=== PATIENT | female | born 1985 | race Two or more races ===

== ENCOUNTER 2016-10-10 16:58 | Emergency (ER) | payer OTHER ==
[2016-10-10 20:48] LABS: BASO % 0.3 % (0.0-1.0); EOS # 0.2 K/mm3 (0.0-0.50); EOS % 1.8 % (0.0-3.0); LARGE UNSTAINED CELL # 0.2 K/mm3 (0.0-0.4); LYMPH # 2.5 K/mm3 (1.5-6.5); LYMPH % 29.4 % (24.0-44.0); MEAN CORPUSCULAR HEMOGLOBIN 31.3 pg (27.0-33.0); MEAN CORPUSCULAR HGB CONC 35.6 g/dl (32.0-36.5); MEAN CORPUSCULAR VOLUME 87.9 fl (80.0-96.0); MONO # 0.4 K/mm3 (0.0-0.8); MONO % 4.8 % (0.0-5.0); NEUTROPHILS # 5.3 K/mm3 (1.8-7.7); NEUTROPHILS % 61.7 % (36.0-66.0); PLATELET COUNT, AUTOMATED 321 k/mm3 (150-450); WHITE BLOOD COUNT 8.6 K/mm3 (4.0-10.0)
--- NOTE | 2016-10-10 20:48 | REP ---
Clinical: Early with vaginal bleeding. Technique: Transabdominal obstetrical ultrasound with color Doppler evaluation of the maternal ovaries and gestation. Findings: Anteverted uterus measures 10.4 x 5.5 x 7.6 cm. A single live early intrauterine is identified. Gestational sac with yolk sac and pole noted. CRL of 6 mm corresponds to 6 weeks 3 days gestational age with estimated date of delivery 06/02/2017. heart rate equals 100 beats per minute. Two subchorionic hemorrhages are identified measuring 2.9 x 1.9 x 2.9 cm along the lower uterine segment and 1.7 x 1.5 x 1.0 cm along the left side of the gestational sac. Maternal ovaries are normal in appearance and vascularity. Left ovary measures 3.0 x 3.6 x 2.0 cm; RI equal 0.59. Right ovary measures 3.4 x 2.5 x 2.7 cm; RI equal 0.62. No significant pelvic fluid. Impression: 1. Single live early intrauterine at 6 weeks 3 days gestational age. Complete anatomical assessment should be performed at 19-20 weeks. 2. Subchorionic hemorrhages as noted above. Signed by Major Mcdonough MD 10/10/2016 08:40 P
--- NOTE | 2016-10-10 22:36 | EDDOCDS ---
Physician Documentation [facility] Name: Radha Kim Age: 30 yrs Sex: Female : 1985 Arrival Date: 10/10/2016 Time: 16:58 Bed I4 / M4 Private MD: Unknown, Family Disposition: 10/10/16 22:18 Discharged to Home/Self Care. Impression: Threatened . - Condition is Stable. - Discharge Instructions: Threatened Miscarriage. - Medication Reconciliation, Local Pharmacy Hours form. - Follow up: Private Physician; When: 2 - 3 days; Reason: Recheck today's complaints, Continuance of care. - Problem is new. - Symptoms have improved. - Notes: PLEASE FOLLOW UP WITH DR MCKEON OR AN OB DOCTOR OF YOUR CHOICE , RETURN TO THE ER IF THE SYMPTOMS WORSEN OR BECOME CONCERNING, IF YOU ARE UNABLE TO FOLLOW UP WITH DR MCKEON, PLEASE RETURN TO THE ER IN 48 HOURS FOR A REPEAT HORMONE Historical: - Allergies: no known allergies; - Home Meds: 1. none - PSHx: none; - Social history: Smoking status: Patient/guardian denies using No barriers to communication noted, The patient speaks fluent Somali. - Family history: Not pertinent. - : The pt / caregiver states he / she is not on anticoagulants. Home medication list is obtained from the patient. - Exposure Risk Screening:: None identified. 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 11 in. (149.86 cm) (R); 22:30 BP 97 / 55 LA Sitting (auto/reg); Pulse 62 MON; Resp 18 S; Temp 98.5(TE); Pulse Ox 98% cln on R/A; Pain 0/10; 17:00 Body Mass Index 20.20 (45.36 kg, 149.86 cm) dd6 MDM: 18:51 Financial registration complete. gjb 19:02 IV Saline Lock ordered. ck7 19:02 NS 0.9% 1000 ml IV at bolus once ordered. ck7 19:02 Set up pelvic ordered. ck7 19:03 Type & Screen Ordered. EDMS 19:03 CBC with Diff Ordered. EDMS 19:03 UA Ordered. EDMS 19:03 Hcg, Serum Quantitative Ordered. EDMS 19:03 GC & Chlamydia Amplification Ordered. EDMS 19:03 Urine Culture Ordered. EDMS 19:03 Wet Prep Ordered. EDMS 19:03 US 1st trimester Ordered. EDMS 20:11 [facility] Payment Agreement was scanned into [employer] and attached to record. gjb 20:42 DUPLEX SCAN LIMITED (DOPPLER) Ordered. EDMS 21:15 UA Reviewed. ck7 21:15 CBC with Diff Reviewed. ck7 21:15 Type & Screen Reviewed. ck7 21:15 Hcg, Serum Quantitative Reviewed. ck7 21:15 US 1st trimester Reviewed. ck7 21:44 Wet Prep Reviewed. ck7 Administered Medications: 19:27 Drug: NS 0.9% 1000 ml [sodium chloride 0.9 % intravenous solution] Route: IV; Rate: lf1 bolus; Site: right antecubital; Signatures: Dispatcher [employer] Patrizia Arriaza, RN BEAR dls Mary Hewitt RN RN lf1 Hermann No, RPA-C RPA-Cck7 Bar GoodsonRN RN Alesha Hooks The chart was reviewed and I authenticate all verbal orders and agree with the evaluation and treatment provided.Attachments: 20:11 [facility] Payment Agreement gjangelo MTDD
--- NOTE | 2016-10-10 22:36 | EDDOCDS ---
Nurse's Notes [facility] Name: Radha Kim Age: 30 yrs Sex: Female : 1985 Arrival Date: 10/10/2016 Time: 16:58 Bed I4 / M4 Private MD: Unknown, Family Dr Diagnosis: Threatened Presentation: 10/10 17:12 Presenting complaint: Patient states: Pt presents with vaginal bleeding bright red on dls tissue and abdominal cramping onset this morning. Pt thinks she is about 7 weeks no care yet. Risk factors: The patient reports no loss of conciousness prior to arrival. This patient has not had a hysterectomy. This patient has not begun menopause. Adult Sepsis Screening: The patient does not have new or worsening altered mentation. Patient's respiratory rate is less than 22. Systolic blood pressure is greater than 100. Patient has a qSOFA score of 0- Negative Sepsis Screen. Suicide/Homicide risk assessment- the patient denies having any suicidal and/or homicidal ideations and does not present with any other emotional, behavioral or mental health complaints. Status: Patient is not a assessment services manager or dependent. Transition of care: patient was not received from another setting of care. 17:12 Acuity: GUS Level 3 dls 17:12 Method Of Arrival: Walkin/Carried/Asstd dls Triage Assessment: 17:14 General: Appears in no apparent distress, slender, well developed, well nourished, well dls groomed, Behavior is cooperative. Pain: Pain currently is 2 out of 10 on a pain scale. HIV screening NA for this visit Offered previously. : Reports vaginal bleeding that is bright red. 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 none - PSHx: none; - Social history: Smoking status: Patient/guardian denies using No barriers to communication noted, The patient speaks fluent Yakut. - Family history: Not pertinent. - : The pt / caregiver states he / she is not on anticoagulants. Home medication list is obtained from the patient. - Exposure Risk Screening:: None identified. Screenin:28 Screening information is obtained from the patient. Fall risk: No risks identified. lf1 Assistance ADL's: requires no assistance with activities of daily living. Abuse/DV Screen: The patient / caregiver reports he/she is: not in a situation that causes fear, pain or injury. Nutritional screening: No deficits noted. Advance Directives: Currently, there is no health care proxy. home support is adequate. Assessment: 19:28 Adult Sepsis Screening: The patient does not have new or worsening altered mentation. lf1 Patient's respiratory rate is less than 22. Systolic blood pressure is greater than 100. Patient has a qSOFA score of 0- Negative Sepsis Screen. General: Appears in no apparent distress, comfortable, Behavior is cooperative. Neurological: Level of Consciousness is awake, alert, Oriented to person, place, time. EENT: No deficits noted. Cardiovascular: Chest pain is denied. Respiratory: Respiratory effort is even, unlabored. GI: No deficits noted. : Def to provider Reports vaginal bleeding that is bright red light flow. Derm: Skin is normal. 22:33 General: Patient instructed on discharge instructions. Patient asked if there were any jmb questions regarding discharge, patient stated no. IV discontinued per hospital policy. Patient signed discharge instructions. Patient discharged in stable condition. . Vital Signs: 17:00 BP 113 / 63; Pulse 80; Resp 18 S; Temp 98.5(O); Pulse Ox 99% on R/A; Weight 45.36 kg dd6 (R); Height 4 ft. 11 in. (149.86 cm) (R); 22:30 BP 97 / 55 LA Sitting (auto/reg); Pulse 62 MON; Resp 18 S; Temp 98.5(TE); Pulse Ox 98% cln on R/A; Pain 0/10; 17:00 Body Mass Index 20.20 (45.36 kg, 149.86 cm) dd6 Vitals: 17:00 Log In Time: October 10, 2016 at 16:58. dd6 ED Course: 16:59 Patient visited by Jai Bunch, SANA. dd6 16:59 Unknown, Family is Private Physician. dd6 16:59 Patient moved to Waiting dd6 17:00 Patient moved to Pre RCE dd6 17:14 Triage Initiated dls 18:22 Patient moved to Triage 1 ct3 18:37 Hermann No [facility] ck7 18:37 Ade Lee MD is Attending Physician. ck7 18:37 Patient visited by Hermann No RPA-C. ck7 19:02 Patient moved to I4 / M4 b 19:14 Patient visited by Hermann No RPA-C. ck7 19:25 Hcg, Serum Quantitative Sent. lf1 19:28 The patient / caregiver is instructed regarding the plan of care and ED course. lf1 Accompanied by Family Member, Bed in low position. Call light in reach. 19:28 Type & Screen Sent. lf1 19:28 Urine Culture Sent. lf1 19:28 UA Sent. lf1 19:28 CBC with Diff Sent. lf1 19:28 Inserted saline lock: 20 gauge in right antecubital area and blood collected. The lf1 patient tolerated the procedure well. Labs drawn. (by ED staff). Sent per order to lab. Urine collected. Clean catch specimen. 19:32 Patient visited by Mary Hewitt RN. lf1 19:53 Patient moved to Ultrasound dmg 20:10 Patient name changed from Radha\S\\S\Kim\S\ to Radha\S\Savanna\S\Kim. EDMS 20:11 [facility] Payment Agreement was scanned into [employer] and attached to record. gjb 20:19 Patient moved to I4 / M4 dmg 20:23 Patient visited by Heramnn No RPA-C. ck7 20:59 US 1st trimester Returned. EDMS 21:02 Patient visited by Hermann No RPA-C. ck7 21:44 Patient visited by Hermann No RPA-C. ck7 22:16 Patient visited by Hermann No RPA-C. ck7 22:30 Patient visited by Mariana Donato PCA. cln 22:33 Discontinued lock intact, bleeding controlled, pressure dressing applied, No jmb redness/swelling at site. No procedures done that require assistance. Administered Medications: 19:27 Drug: NS 0.9% 1000 ml [sodium chloride 0.9 % intravenous solution] Route: IV; Rate: lf1 bolus; Site: right antecubital; Order Results: Lab Order: CBC with Diff; SPEC'M 10/10/16 19:22 Test: WHITE BLOOD COUNT; Value: 8.6; Range: 4.0-10.0; Units: K/mm3; Status: F Test: RED BLOOD COUNT; Value: 4.23; Range: 4.00-5.40; Units: M/mm3; Status: F Test: HEMOGLOBIN; Value: 13.3; Range: 12.0-16.0; Units: g/dl; Status: F Test: HEMATOCRIT; Value: 37.2; Range: 36.0-47.0; Units: %; Status: F Test: MEAN CORPUSCULAR VOLUME; Value: 87.9; Range: 80.0-96.0; Units: fl; Status: F Test: MEAN CORPUSCULAR HEMOGLOBIN; Value: 31.3; Range: 27.0-33.0; Units: pg; Status: F Test: MEAN CORPUSCULAR HGB CONC; Value: 35.6; Range: 32.0-36.5; Units: g/dl; Status: F Test: RED CELL DISTRIBUTION WIDTH; Value: 12.0; Range: 11.5-14.5; Units: %; Status: F Test: PLATELET COUNT, AUTOMATED; Value: 321; Range: 150-450; Units: k/mm3; Status: F Test: NEUTROPHILS %; Value: 61.7; Range: 36.0-66.0; Units: %; Status: F Test: LYMPH %; Value: 29.4; Range: 24.0-44.0; Units: %; Status: F Test: MONO %; Value: 4.8; Range: 0.0-5.0; Units: %; Status: F Test: EOS %; Value: 1.8; Range: 0.0-3.0; Units: %; Status: F Test: BASO %; Value: 0.3; Range: 0.0-1.0; Units: %; Status: F Test: LARGE UNSTAINED CELL %; Value: 2.0; Range: 0.0-4.0; Units: %; Status: F Test: NEUTROPHILS #; Value: 5.3; Range: 1.8-7.7; Units: K/mm3; Status: F Test: LYMPH #; Value: 2.5; Range: 1.5-6.5; Units: K/mm3; Status: F Test: MONO #; Value: 0.4; Range: 0.0-0.8; Units: K/mm3; Status: F Test: EOS #; Value: 0.2; Range: 0.0-0.50; Units: K/mm3; Status: F Test: BASO #; Value: 0.0; Range: 0.0-0.2; Units: K/mm3; Status: F Test: LARGE UNSTAINED CELL #; Value: 0.2; Range: 0.0-0.4; Units: K/mm3; Status: F Lab Order: UA; SPEC'M 10/10/16 19:23 Test: APPEARANCE, URINE; Value: HAZY; Range: CLEAR; Status: F Test: COLOR, URINE; Value: YELLOW; Range: YELLOW; Status: F Test: PH,URINE; Value: 6.0; Range: 5.0-9.0; Units: UNITS; Status: F Test: SPECIFIC GRAVITY URINE AUTO; Value: 1.025; Range: 1.002-1.035; Status: F Test: PROTEIN, URINE AUTO; Value: NEGATIVE; Range: NEGATIVE; Units: mg/dL; Status: F Test: GLUCOSE, URINE (UA) AUTO; Value: NEGATIVE; Range: NEGATIVE; Units: mg/dL; Status: F Test: KETONE, URINE AUTO; Value: NEGATIVE; Range: NEGATIVE; Units: mg/dL; Status: F Test: UROBILINOGEN, URINE AUTO; Value: 0.2; Range: 0.0-2.0; Units: mg/dL; Status: F Test: BILIRUBIN, URINE AUTO; Value: NEGATIVE; Range: NEGATIVE; Status: F Test: NITRITE, URINE AUTO; Value: NEGATIVE; Range: NEGATIVE; Status: F Test: LEUKOCYTE ESTERASE, URINE AUTO; Value: TRACE; Range: NEGATIVE; Abnormal: Above high normal; Status: F Test: BLOOD, URINE BLOOD; Value: NEGATIVE; Range: NEGATIVE; Status: F Test: WBC, URINE AUTO; Value: 1; Range: 0-3; Units: /HPF; Status: F Test: RBC, URINE AUTO; Value: 1; Range: 0-3; Units: /HPF; Status: F Test: BACTERIA, URINE AUTO; Value: NEGATIVE; Range: NEGATIVE; Status: F Test: SQUAMOUS EPITHELIAL CELL UR AU; Value: 3; Range: 0-6; Units: /HPF; Status: F Test: MUCUS, URINE; Value: SMALL; Range: NEGATIVE; Status: F Test: HYALINE CAST, URINE AUTO; Value: 0; Range: 0-1; Units: /LPF; Status: F Lab Order: Type & Screen; [facility] 10/10/16 19:22 Test: BLOOD TYPE; Value: B POS; Status: F Test: AB SCREEN (INDIRECT DIMAS)GEL; Value: NEGATIVE; Status: F Lab Order: Hcg, Serum Quantitative; [facility] 10/10/16 19:23 Test: HCG, SERUM QUANTITATIVE; Value: [id number]; Units: MIU/ML; Status: F Test Note: ; GESTATIONAL AGE APPROXIMATE HCG RANGE (MIU/ML) 0.2-1 WEEK 5-50 1-2 WEEKS 50-500 2-3 WEEKS 100-5,000 3-4 WEEKS 500-10,000 4-5 WEEKS 1,000-50,000 5-6 WEEKS 10,000-100,000 6-8 WEEKS 15,000-200,000 2-3 MONTHS 10,000-100,000 NON FEMALES LESS THAN 3.0 Patient samples may contain human heterophilic antibodies that could react with immunoassays to give falsely elevated or depressed results. This assay has been designed to minimize interference from heterophilic antibodies. Elevated hCG levels have also been associated with trophoblastic disease and nontrophoblastic neoplasms. The possibility of having these diseases should be considered before a diagnosis of is made. This test is not intended for use as a surrogate marker for aiding in the diagnosis or monitoring the treatment of cancer patients. [employer] methodology. Lab Order: Wet Prep; [facility] 19[facility]10 Test: WET PREP; Value: WET PREP RESULT; Status: F Test: WET PREP; Value: MANY EPITHELIAL CELLS PRESENT; Status: F Test: WET PREP; Value: MANY WBC; Status: F Test: WET PREP; Value: MANY SHORT RODS PRESENT; Status: F Test: WET PREP; Value: FEW LONG RODS PRESENT; Status: F Test: WET PREP; Value: Comments:; Status: F Test Note: ; Specimen did not meet the 1 hour time limit from collection to examination. Trichomonas vaginalis loses motility quickly therefore, samples need to be examined within 1 hour of collection to optimally identify this organism. Radiology Order: US 1st trimester Test: US 1st trimester REASON FOR EXAMINATION: Bleeding; Clinical: Early with vaginal bleeding.; ; Technique: Transabdominal obstetrical ultrasound with color Doppler evaluation; of the maternal ovaries and gestation.; ; Findings:; Anteverted uterus measures 10.4 x 5.5 x 7.6 cm. A single live early intrauterine; is identified. Gestational sac with yolk sac and pole noted.; CRL of 6 mm corresponds to 6 weeks 3 days gestational age with estimated date of; delivery 06/02/2017. heart rate equals 100 beats per minute. Two; subchorionic hemorrhages are identified measuring 2.9 x 1.9 x 2.9 cm along the; lower uterine segment and 1.7 x 1.5 x 1.0 cm along the left side of the; gestational sac.; ; Maternal ovaries are normal in appearance and vascularity. Left ovary measures; 3.0 x 3.6 x 2.0 cm; RI equal 0.59. Right ovary measures 3.4 x 2.5 x 2.7 cm; RI; equal 0.62. No significant pelvic fluid.; ; Impression:; 1. Single live early intrauterine at 6 weeks 3 days gestational age.; Complete anatomical assessment should be performed at 19-20 weeks.; 2. Subchorionic hemorrhages as noted above.; ; ; Signed by; Major Mcdonough MD 10/10/2016 08:40 P; Outcome: 22:18 Discharge ordered by Provider. ck7 22:33 Discharge Assessment: Patient awake, alert and oriented x 3. No cognitive and/or jmb functional deficits noted. Patient verbalized understanding of disposition instructions. Patient awake and alert. obeys commands, Oriented to person, place and time. Patient verbalized understanding of disposition instructions. Patient has no functional deficits. patient administered narcotics - no. The following High Risk Discharge criteria are identified: None. Discharged to home ambulatory, with significant other. Condition: stable. Discharge instructions given to patient, Instructed on discharge instructions, follow up and referral plans. Demonstrated understanding of instructions, Pt was receptive of discharge instructions/ teaching. No special radiology studies were completed. Property sent home with patient. 22:35 Patient left the ED. cuauhtemoc Signatures: Dispatcher [employer] EDPatrizia Morales, RN RN Aracely Mo LisaRN RN lf1 Jai Bunch, LENS GAUGER LENS GAUGER dd6 Correa, Juany, LENS GAUGER LENS GAUGER ct3 Hermann No, RPA-C RPA-Cck7 Bar Goodson RN RN jmb Beck, Gabriela gjb Nichols, Mariana, LENS GAUGER LENS GAUGER cln MTDD
--- NOTE | 2016-10-12 23:36 | EDDOCDS ---
Physician Documentation [facility] Name: Radha Kim Age: 30 yrs Sex: Female : 1985 Arrival Date: 10/10/2016 Time: 16:58 Bed I4 / M4 Private MD: Unknown, Family Disposition: 10/10/16 22:18 Discharged to Home/Self Care. Impression: Threatened . - Condition is Stable. - Discharge Instructions: Threatened Miscarriage. - Medication Reconciliation, Local Pharmacy Hours form. - Follow up: Private Physician; When: 2 - 3 days; Reason: Recheck today's complaints, Continuance of care. - Problem is new. - Symptoms have improved. - Notes: PLEASE FOLLOW UP WITH DR MCKEON OR AN OB DOCTOR OF YOUR CHOICE , RETURN TO THE ER IF THE SYMPTOMS WORSEN OR BECOME CONCERNING, IF YOU ARE UNABLE TO FOLLOW UP WITH DR MCKEON, PLEASE RETURN TO THE ER IN 48 HOURS FOR A REPEAT HORMONE Historical: - Allergies: no known allergies; - Home Meds: 1. none - PSHx: none; - Social history: Smoking status: Patient/guardian denies using No barriers to communication noted, The patient speaks fluent Sierra Leonean. - Family history: Not pertinent. - : The pt / caregiver states he / she is not on anticoagulants. Home medication list is obtained from the patient. - Exposure Risk Screening:: None identified. 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 11 in. (149.86 cm) (R); 22:30 BP 97 / 55 LA Sitting (auto/reg); Pulse 62 MON; Resp 18 S; Temp 98.5(TE); Pulse Ox 98% cln on R/A; Pain 0/10; 17:00 Body Mass Index 20.20 (45.36 kg, 149.86 cm) dd6 MDM: 18:51 Financial registration complete. gjb 19:02 IV Saline Lock ordered. ck7 19:02 NS 0.9% 1000 ml IV at bolus once ordered. ck7 19:02 Set up pelvic ordered. ck7 19:03 Type & Screen Ordered. EDMS 19:03 CBC with Diff Ordered. EDMS 19:03 UA Ordered. EDMS 19:03 Hcg, Serum Quantitative Ordered. EDMS 19:03 GC & Chlamydia Amplification Ordered. EDMS 19:03 Urine Culture Ordered. EDMS 19:03 Wet Prep Ordered. EDMS 19:03 US 1st trimester Ordered. EDMS 20:11 [facility] Payment Agreement was scanned into [employer] and attached to record. gjb 20:42 DUPLEX SCAN LIMITED (DOPPLER) Ordered. EDMS 21:15 UA Reviewed. ck7 21:15 CBC with Diff Reviewed. ck7 21:15 Type & Screen Reviewed. ck7 21:15 Hcg, Serum Quantitative Reviewed. ck7 21:15 US 1st trimester Reviewed. ck7 21:44 Wet Prep Reviewed. ck7 10/11 05:38 T-Sheet-- Draft Copy was scanned into [employer] and attached to record. lja Administered Medications: 10/10 19:27 Drug: NS 0.9% 1000 ml [sodium chloride 0.9 % intravenous solution] Route: IV; Rate: lf1 bolus; Site: right antecubital; Signatures: Dispatcher MedHo Patrizia Arriaza RN RN dls Ford, Lisa, RN RN lf1 Hermann No, RPA-C RPA-Cck7 Bar Goodson RN RN jmb Arel, Lisa lja Beck, Gabriela gjb The chart was reviewed and I authenticate all verbal orders and agree with the evaluation and treatment provided.Attachments: 20:11 [facility] Payment Agreement gjb 10/11 05:38 T-Sheet-- Draft Copy lja Chart Complete MTDD
--- NOTE | 2016-10-12 23:36 | EDDOCDS ---
Physician Documentation [facility] Name: Radha Kim Age: 30 yrs Sex: Female : 1985 Arrival Date: 10/10/2016 Time: 16:58 Bed I4 / M4 Private MD: Unknown, Family Disposition: 10/10/16 22:18 Discharged to Home/Self Care. Impression: Threatened . - Condition is Stable. - Discharge Instructions: Threatened Miscarriage. - Medication Reconciliation, Local Pharmacy Hours form. - Follow up: Private Physician; When: 2 - 3 days; Reason: Recheck today's complaints, Continuance of care. - Problem is new. - Symptoms have improved. - Notes: PLEASE FOLLOW UP WITH DR MCKEON OR AN OB DOCTOR OF YOUR CHOICE , RETURN TO THE ER IF THE SYMPTOMS WORSEN OR BECOME CONCERNING, IF YOU ARE UNABLE TO FOLLOW UP WITH DR MCKEON, PLEASE RETURN TO THE ER IN 48 HOURS FOR A REPEAT HORMONE Historical: - Allergies: no known allergies; - Home Meds: 1. none - PSHx: none; - Social history: Smoking status: Patient/guardian denies using No barriers to communication noted, The patient speaks fluent Australian. - Family history: Not pertinent. - : The pt / caregiver states he / she is not on anticoagulants. Home medication list is obtained from the patient. - Exposure Risk Screening:: None identified. 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 11 in. (149.86 cm) (R); 22:30 BP 97 / 55 LA Sitting (auto/reg); Pulse 62 MON; Resp 18 S; Temp 98.5(TE); Pulse Ox 98% cln on R/A; Pain 0/10; 17:00 Body Mass Index 20.20 (45.36 kg, 149.86 cm) dd6 MDM: 18:51 Financial registration complete. gjb 19:02 IV Saline Lock ordered. ck7 19:02 NS 0.9% 1000 ml IV at bolus once ordered. ck7 19:02 Set up pelvic ordered. ck7 19:03 Type & Screen Ordered. EDMS 19:03 CBC with Diff Ordered. EDMS 19:03 UA Ordered. EDMS 19:03 Hcg, Serum Quantitative Ordered. EDMS 19:03 GC & Chlamydia Amplification Ordered. EDMS 19:03 Urine Culture Ordered. EDMS 19:03 Wet Prep Ordered. EDMS 19:03 US 1st trimester Ordered. EDMS 20:11 [facility] Payment Agreement was scanned into [employer] and attached to record. gjb 20:42 DUPLEX SCAN LIMITED (DOPPLER) Ordered. EDMS 21:15 UA Reviewed. ck7 21:15 CBC with Diff Reviewed. ck7 21:15 Type & Screen Reviewed. ck7 21:15 Hcg, Serum Quantitative Reviewed. ck7 21:15 US 1st trimester Reviewed. ck7 21:44 Wet Prep Reviewed. ck7 10/11 05:38 T-Sheet-- Draft Copy was scanned into [employer] and attached to record. lja Administered Medications: 10/10 19:27 Drug: NS 0.9% 1000 ml [sodium chloride 0.9 % intravenous solution] Route: IV; Rate: lf1 bolus; Site: right antecubital; Signatures: Dispatcher MedHo Patrizia Arriaza RN RN dls Ford, Lisa, RN RN lf1 Hermann No, RPA-C RPA-Cck7 Bar Goodson RN RN jmb Arel, Lisa lja Beck, Gabriela gjb The chart was reviewed and I authenticate all verbal orders and agree with the evaluation and treatment provided.Attachments: 20:11 [facility] Payment Agreement gjb 10/11 05:38 T-Sheet-- Draft Copy lja Chart Complete MTDD
--- NOTE | 2016-10-12 23:36 | EDDOCDS ---
Nurse's Notes [facility] Name: Radha Kim Age: 30 yrs Sex: Female : 1985 Arrival Date: 10/10/2016 Time: 16:58 Bed I4 / M4 Private MD: Unknown, Family Dr Diagnosis: Threatened Presentation: 10/10 17:12 Presenting complaint: Patient states: Pt presents with vaginal bleeding bright red on dls tissue and abdominal cramping onset this morning. Pt thinks she is about 7 weeks no care yet. Risk factors: The patient reports no loss of conciousness prior to arrival. This patient has not had a hysterectomy. This patient has not begun menopause. Adult Sepsis Screening: The patient does not have new or worsening altered mentation. Patient's respiratory rate is less than 22. Systolic blood pressure is greater than 100. Patient has a qSOFA score of 0- Negative Sepsis Screen. Suicide/Homicide risk assessment- the patient denies having any suicidal and/or homicidal ideations and does not present with any other emotional, behavioral or mental health complaints. Status: Patient is not a financial service representative or dependent. Transition of care: patient was not received from another setting of care. 17:12 Acuity: GUS Level 3 dls 17:12 Method Of Arrival: Walkin/Carried/Asstd dls Triage Assessment: 17:14 General: Appears in no apparent distress, slender, well developed, well nourished, well dls groomed, Behavior is cooperative. Pain: Pain currently is 2 out of 10 on a pain scale. HIV screening NA for this visit Offered previously. : Reports vaginal bleeding that is bright red. 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 none - PSHx: none; - Social history: Smoking status: Patient/guardian denies using No barriers to communication noted, The patient speaks fluent Polish. - Family history: Not pertinent. - : The pt / caregiver states he / she is not on anticoagulants. Home medication list is obtained from the patient. - Exposure Risk Screening:: None identified. Screenin:28 Screening information is obtained from the patient. Fall risk: No risks identified. lf1 Assistance ADL's: requires no assistance with activities of daily living. Abuse/DV Screen: The patient / caregiver reports he/she is: not in a situation that causes fear, pain or injury. Nutritional screening: No deficits noted. Advance Directives: Currently, there is no health care proxy. home support is adequate. Assessment: 19:28 Adult Sepsis Screening: The patient does not have new or worsening altered mentation. lf1 Patient's respiratory rate is less than 22. Systolic blood pressure is greater than 100. Patient has a qSOFA score of 0- Negative Sepsis Screen. General: Appears in no apparent distress, comfortable, Behavior is cooperative. Neurological: Level of Consciousness is awake, alert, Oriented to person, place, time. EENT: No deficits noted. Cardiovascular: Chest pain is denied. Respiratory: Respiratory effort is even, unlabored. GI: No deficits noted. : Def to provider Reports vaginal bleeding that is bright red light flow. Derm: Skin is normal. 22:33 General: Patient instructed on discharge instructions. Patient asked if there were any jmb questions regarding discharge, patient stated no. IV discontinued per hospital policy. Patient signed discharge instructions. Patient discharged in stable condition. . Vital Signs: 17:00 BP 113 / 63; Pulse 80; Resp 18 S; Temp 98.5(O); Pulse Ox 99% on R/A; Weight 45.36 kg dd6 (R); Height 4 ft. 11 in. (149.86 cm) (R); 22:30 BP 97 / 55 LA Sitting (auto/reg); Pulse 62 MON; Resp 18 S; Temp 98.5(TE); Pulse Ox 98% cln on R/A; Pain 0/10; 17:00 Body Mass Index 20.20 (45.36 kg, 149.86 cm) dd6 Vitals: 17:00 Log In Time: October 10, 2016 at 16:58. dd6 ED Course: 16:59 Patient visited by Jai Bunch, SANA. dd6 16:59 Unknown, Family is Private Physician. dd6 16:59 Patient moved to Waiting dd6 17:00 Patient moved to Pre RCE dd6 17:14 Triage Initiated dls 18:22 Patient moved to Triage 1 ct3 18:37 Hermann [facility] ck7 18:37 Ade Lee MD is Attending Physician. ck7 18:37 Patient visited by Hermann No RPA-C. ck7 19:02 Patient moved to I4 / M4 b 19:14 Patient visited by Hermann No RPA-C. ck7 19:25 Hcg, Serum Quantitative Sent. lf1 19:28 The patient / caregiver is instructed regarding the plan of care and ED course. lf1 Accompanied by Family Member, Bed in low position. Call light in reach. 19:28 Type & Screen Sent. lf1 19:28 Urine Culture Sent. lf1 19:28 UA Sent. lf1 19:28 CBC with Diff Sent. lf1 19:28 Inserted saline lock: 20 gauge in right antecubital area and blood collected. The lf1 patient tolerated the procedure well. Labs drawn. (by ED staff). Sent per order to lab. Urine collected. Clean catch specimen. 19:32 Patient visited by Mary Hewitt RN. lf1 19:53 Patient moved to Ultrasound dmg 20:10 Patient name changed from Radha\S\\S\Kim\S\ to Radha\S\Savanna\S\Kim. EDMS 20:11 [place] [place] was scanned into [employer] D[employer]ies and attached to record. gjb 20:19 Patient moved to I4 / M4 dmg 20:23 Patient visited by Hermann No RPA-C. ck7 20:59 US 1st trimester Returned. EDMS 21:02 Patient visited by Hermann No RPA-C. ck7 21:44 Patient visited by Hermann No RPA-C. ck7 22:16 Patient visited by Hermann No RPA-C. ck7 22:30 Patient visited by Mariana Donato PCA. cln 22:33 Discontinued lock intact, bleeding controlled, pressure dressing applied, No jmb redness/swelling at site. No procedures done that require assistance. 10/11 05:38 T-Sheet-- Draft Copy was scanned into Field Dailies and attached to record. lja Administered Medications: 10/10 19:27 Drug: NS 0.9% 1000 ml [sodium chloride 0.9 % intravenous solution] Route: IV; Rate: lf1 bolus; Site: right antecubital; Order Results: Lab Order: CBC with Diff; SPEC'M 10/10/16 19:22 Test: WHITE BLOOD COUNT; Value: 8.6; Range: 4.0-10.0; Units: K/mm3; Status: F Test: RED BLOOD COUNT; Value: 4.23; Range: 4.00-5.40; Units: M/mm3; Status: F Test: HEMOGLOBIN; Value: 13.3; Range: 12.0-16.0; Units: g/dl; Status: F Test: HEMATOCRIT; Value: 37.2; Range: 36.0-47.0; Units: %; Status: F Test: MEAN CORPUSCULAR VOLUME; Value: 87.9; Range: 80.0-96.0; Units: fl; Status: F Test: MEAN CORPUSCULAR HEMOGLOBIN; Value: 31.3; Range: 27.0-33.0; Units: pg; Status: F Test: MEAN CORPUSCULAR HGB CONC; Value: 35.6; Range: 32.0-36.5; Units: g/dl; Status: F Test: RED CELL DISTRIBUTION WIDTH; Value: 12.0; Range: 11.5-14.5; Units: %; Status: F Test: PLATELET COUNT, AUTOMATED; Value: 321; Range: 150-450; Units: k/mm3; Status: F Test: NEUTROPHILS %; Value: 61.7; Range: 36.0-66.0; Units: %; Status: F Test: LYMPH %; Value: 29.4; Range: 24.0-44.0; Units: %; Status: F Test: MONO %; Value: 4.8; Range: 0.0-5.0; Units: %; Status: F Test: EOS %; Value: 1.8; Range: 0.0-3.0; Units: %; Status: F Test: BASO %; Value: 0.3; Range: 0.0-1.0; Units: %; Status: F Test: LARGE UNSTAINED CELL %; Value: 2.0; Range: 0.0-4.0; Units: %; Status: F Test: NEUTROPHILS #; Value: 5.3; Range: 1.8-7.7; Units: K/mm3; Status: F Test: LYMPH #; Value: 2.5; Range: 1.5-6.5; Units: K/mm3; Status: F Test: MONO #; Value: 0.4; Range: 0.0-0.8; Units: K/mm3; Status: F Test: EOS #; Value: 0.2; Range: 0.0-0.50; Units: K/mm3; Status: F Test: BASO #; Value: 0.0; Range: 0.0-0.2; Units: K/mm3; Status: F Test: LARGE UNSTAINED CELL #; Value: 0.2; Range: 0.0-0.4; Units: K/mm3; Status: F Lab Order: UA; SPEC'M 10/10/16 19:23 Test: APPEARANCE, URINE; Value: HAZY; Range: CLEAR; Status: F Test: COLOR, URINE; Value: YELLOW; Range: YELLOW; Status: F Test: PH,URINE; Value: 6.0; Range: 5.0-9.0; Units: UNITS; Status: F Test: SPECIFIC GRAVITY URINE AUTO; Value: 1.025; Range: 1.002-1.035; Status: F Test: PROTEIN, URINE AUTO; Value: NEGATIVE; Range: NEGATIVE; Units: mg/dL; Status: F Test: GLUCOSE, URINE (UA) AUTO; Value: NEGATIVE; Range: NEGATIVE; Units: mg/dL; Status: F Test: KETONE, URINE AUTO; Value: NEGATIVE; Range: NEGATIVE; Units: mg/dL; Status: F Test: UROBILINOGEN, URINE AUTO; Value: 0.2; Range: 0.0-2.0; Units: mg/dL; Status: F Test: BILIRUBIN, URINE AUTO; Value: NEGATIVE; Range: NEGATIVE; Status: F Test: NITRITE, URINE AUTO; Value: NEGATIVE; Range: NEGATIVE; Status: F Test: LEUKOCYTE ESTERASE, URINE AUTO; Value: TRACE; Range: NEGATIVE; Abnormal: Above high normal; Status: F Test: BLOOD, URINE BLOOD; Value: NEGATIVE; Range: NEGATIVE; Status: F Test: WBC, URINE AUTO; Value: 1; Range: 0-3; Units: /HPF; Status: F Test: RBC, URINE AUTO; Value: 1; Range: 0-3; Units: /HPF; Status: F Test: BACTERIA, URINE AUTO; Value: NEGATIVE; Range: NEGATIVE; Status: F Test: SQUAMOUS EPITHELIAL CELL UR AU; Value: 3; Range: 0-6; Units: /HPF; Status: F Test: MUCUS, URINE; Value: SMALL; Range: NEGATIVE; Status: F Test: HYALINE CAST, URINE AUTO; Value: 0; Range: 0-1; Units: /LPF; Status: F Lab Order: Urine Culture; [facility] 10/10/16 19:23 Test: URINE CULTURE; Value: URINE CULTURE RESULT NO GROWTH; Status: F Lab Order: Type & Screen; [facility] 10/10/16 19:22 Test: BLOOD TYPE; Value: B POS; Status: F Test: AB SCREEN (INDIRECT DIMAS)GEL; Value: NEGATIVE; Status: F Lab Order: Hcg, Serum Quantitative; [facility] 10/10/16 19:23 Test: HCG, SERUM QUANTITATIVE; Value: [id number]; Units: MIU/ML; Status: F Test Note: ; GESTATIONAL AGE APPROXIMATE HCG RANGE (MIU/ML) 0.2-1 WEEK 5-50 1-2 WEEKS 50-500 2-3 WEEKS 100-5,000 3-4 WEEKS 500-10,000 4-5 WEEKS 1,000-50,000 5-6 WEEKS 10,000-100,000 6-8 WEEKS 15,000-200,000 2-3 MONTHS 10,000-100,000 NON FEMALES LESS THAN 3.0 Patient samples may contain human heterophilic antibodies that could react with immunoassays to give falsely elevated or depressed results. This assay has been designed to minimize interference from heterophilic antibodies. Elevated hCG levels have also been associated with trophoblastic disease and nontrophoblastic neoplasms. The possibility of having these diseases should be considered before a diagnosis of is made. This test is not intended for use as a surrogate marker for aiding in the diagnosis or monitoring the treatment of cancer patients. [employer] methodology. Lab Order: GC & Chlamydia Amplification; [facility] 10/10/16 19:10 Test: CHLAMYDIA DNA AMPLIFICATION; Value: NEGATIVE; Range: NEGATIVE; Status: F Test: GC DNA AMPLIFICATION; Value: NEGATIVE; Range: NEGATIVE; Status: F Lab Order: Wet Prep; SPEC'M 10/10/16 19:10 Test: WET PREP; Value: WET PREP RESULT; Status: F Test: WET PREP; Value: MANY EPITHELIAL CELLS PRESENT; Status: F Test: WET PREP; Value: MANY WBC; Status: F Test: WET PREP; Value: MANY SHORT RODS PRESENT; Status: F Test: WET PREP; Value: FEW LONG RODS PRESENT; Status: F Test: WET PREP; Value: Comments:; Status: F Test Note: ; Specimen did not meet the 1 hour time limit from collection to examination. Trichomonas vaginalis loses motility quickly therefore, samples need to be examined within 1 hour of collection to optimally identify this organism. Radiology Order: US 1st trimester Test: US 1st trimester REASON FOR EXAMINATION: Bleeding; Clinical: Early with vaginal bleeding.; ; Technique: Transabdominal obstetrical ultrasound with color Doppler evaluation; of the maternal ovaries and gestation.; ; Findings:; Anteverted uterus measures 10.4 x 5.5 x 7.6 cm. A single live early intrauterine; is identified. Gestational sac with yolk sac and pole noted.; CRL of 6 mm corresponds to 6 weeks 3 days gestational age with estimated date of; delivery 06/02/2017. heart rate equals 100 beats per minute. Two; subchorionic hemorrhages are identified measuring 2.9 x 1.9 x 2.9 cm along the; lower uterine segment and 1.7 x 1.5 x 1.0 cm along the left side of the; gestational sac.; ; Maternal ovaries are normal in appearance and vascularity. Left ovary measures; 3.0 x 3.6 x 2.0 cm; RI equal 0.59. Right ovary measures 3.4 x 2.5 x 2.7 cm; RI; equal 0.62. No significant pelvic fluid.; ; Impression:; 1. Single live early intrauterine at 6 weeks 3 days gestational age.; Complete anatomical assessment should be performed at 19-20 weeks.; 2. Subchorionic hemorrhages as noted above.; ; ; Signed by; Major Mcdonough MD 10/10/2016 08:40 P; Outcome: 22:18 Discharge ordered by Provider. ck7 22:33 Discharge Assessment: Patient awake, alert and oriented x 3. No cognitive and/or jmb functional deficits noted. Patient verbalized understanding of disposition instructions. Patient awake and alert. obeys commands, Oriented to person, place and time. Patient verbalized understanding of disposition instructions. Patient has no functional deficits. patient administered narcotics - no. The following High Risk Discharge criteria are identified: None. Discharged to home ambulatory, with significant other. Condition: stable. Discharge instructions given to patient, Instructed on discharge instructions, follow up and referral plans. Demonstrated understanding of instructions, Pt was receptive of discharge instructions/ teaching. No special radiology studies were completed. Property sent home with patient. 22:35 Patient left the ED. cuauhtemoc Signatures: Dispatcher [employer] EDMS Patrizia Tuttle, RN RN Aracely Mo Lisa,RN RN lf1 Jai Bunch, SEED COLLECTOR SEED COLLECTOR dd6 Juany Correa, SEED COLLECTOR SEED COLLECTOR ct3 Hermann No, RPA-C RPA-Cck7 Bar GoodsonRN RN cuauhtemoc Lopez, Alesha Williamson Crystal, SEED COLLECTOR SEED COLLECTOR cln Chart Complete APOLINAR
== END 2016-10-10 22:35 | disposition home or self-care (01) ==
LOC: M ED 16:58
DX: O20.0 Threatened abortion (principal); O36.8910 Maternal care for other specified fetal problems, first trimester, not applicable or unspecified; Z3A.01 Less than 8 weeks gestation of pregnancy

== ENCOUNTER 2016-10-12 10:26 | Emergency (ER) | payer OTHER ==
--- NOTE | 2016-10-12 11:56 | EDDOCDS ---
Physician Documentation [facility] Name: Radha Kim Age: 30 yrs Sex: Female : 1985 Arrival Date: 10/12/2016 Time: 10:26 Bed PR Private MD: Unknown, Family Disposition: 10/12/16 11:47 Discharged to Home/Self Care. Impression: state. - Condition is Stable. - Discharge Instructions: First Trimester of . - Medication Reconciliation, Local Pharmacy Hours form. - Follow up: Emergency Department; When: As needed; Reason: Worsening of conditions. Follow up: Param Candelario; When: Call to arrange an appointment; Reason: Wound/Symptom Recheck, Further diagnostic work-up, Recheck today's complaints, Continuance of care, To establish care. - Problem is new. - Symptoms are unchanged. - Notes: YOUR HCG ON 10/10/16 WAS 49,549. TODAY, IT WAS 56,368 WHICH IS A NORMAL INCREASE FOR A HEALTHY . PLEASE CALL THE OB-REFRIGERATION MECHANIC OFFICE TODAY TO SCHEDULE AN APPOINTMENT TO BE SEEN. LET THEM KNOW YOU WERE SEEN IN THE ER AND THE SYMPTOMS YOU WERE HAVING. ANY WORSENING SYMPTOMS, PLEASE RETURN TO THE ER. Historical: - Allergies: no known allergies; - Home Meds: 1. none - PMHx: none; - PSHx: none; - Social history: Smoking status: Patient states was never smoker of tobacco. No barriers to communication noted, The patient speaks fluent [place] R[place], Speaks appropriately for age. - Family history: Not pertinent. - : The pt / caregiver states he / she is not on anticoagulants. Home medication list is obtained from the patient. - Exposure Risk Screening:: None identified. 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 11 in. (149.86 cm) (R); 11:38 BP 109 / 61; Pulse 62; Resp 18; Temp 97.9(O); Pulse Ox 100% on R/A; Pain 10/18; ct3 10:27 Body Mass Index 20.20 (45.36 kg, 149.86 cm) dd6 MDM: 10:39 Hcg, Serum Quantitative Ordered. EDMS 11:12 Financial registration complete. lg Signatures: Dispatcher [employer] EDWI Linda Robert, Reg Reg lg Luciano Beltran RN RN mlb1 Marcella Salas RN RN ttb Shae Lobo PA-C PARamy dt4 MTDD
--- NOTE | 2016-10-12 11:56 | EDDOCDS ---
Nurse's Notes [facility] Name: Radha Kim Age: 30 yrs Sex: Female : 1985 Arrival Date: 10/12/2016 Time: 10:26 Bed PR Private MD: Unknown, Family Dr Diagnosis: state Presentation: 10/12 10:28 Presenting complaint: Patient states: Here for recheck Hcg. Adult Sepsis Screening: The mlb1 patient does not have new or worsening altered mentation. Patient's respiratory rate is less than 22. Systolic blood pressure is greater than 100. Patient has a qSOFA score of 0- Negative Sepsis Screen. Suicide/Homicide risk assessment- the patient denies having any suicidal and/or homicidal ideations and does not present with any other emotional, behavioral or mental health complaints. Transition of care: Patient is not a food service counter clerk or dependent. patient was not received from another setting of care. 10:28 Acuity: GUS Level 4 mlb1 10:28 Method Of Arrival: Walkin/Carried/Asstd mlb1 10:31 Status: Patient is not a food service counter clerk or dependent. mlb1 10:32 Presenting complaint:. mlb1 Triage Assessment: 10:31 General: Appears in no apparent distress, comfortable, Behavior is appropriate for age, mlb1 cooperative. Pain: Denies pain. HIV screening NA for this visit Offered previously. 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 none - PMHx: none; - PSHx: none; - Social history: Smoking status: Patient states was never smoker of tobacco. No barriers to communication noted, The patient speaks fluent Macedonian, Speaks appropriately for age. - Family history: Not pertinent. - : The pt / caregiver states he / she is not on anticoagulants. Home medication list is obtained from the patient. - Exposure Risk Screening:: None identified. Screenin:31 Screening information is obtained from the patient. Fall risk: No risks identified. mlb1 Assistance ADL's: requires no assistance with activities of daily living. Abuse/DV Screen: The patient / caregiver reports he/she is: not in a situation that causes fear, pain or injury. Nutritional screening: No deficits noted. Advance Directives: Currently, there is no health care proxy. home support is adequate. Assessment: 11:53 Adult Sepsis Screening: The patient does not have new or worsening altered mentation. ttb Patient's respiratory rate is less than 22. Systolic blood pressure is greater than 100. Patient has a qSOFA score of 0- Negative Sepsis Screen. General: Appears in no apparent distress, well nourished, well groomed, Behavior is appropriate for age, cooperative, pleasant. Pain: Denies pain. Neurological: Level of Consciousness is awake, alert. Cardiovascular: Chest pain is denied. Respiratory: No deficits noted. Airway is patent Denies cough, shortness of breath. GI: Denies nausea, vomiting. : Reports "Spotting". Derm: Skin is normal. Injury Description: No known injury. Vital Signs: 10:27 BP 116 / 61; Pulse 69; Resp 18 S; Temp 97.7(O); Pulse Ox 100% on R/A; Weight 45.36 kg dd6 (R); Height 4 ft. 11 in. (149.86 cm) (R); 11:38 BP 109 / 61; Pulse 62; Resp 18; Temp 97.9(O); Pulse Ox 100% on R/A; Pain 1/10; ct3 10:27 Body Mass Index 20.20 (45.36 kg, 149.86 cm) dd6 Vitals: 10:27 Log In Time: October 12, 2016 at 10:25. dd6 ED Course: 10:27 Patient visited by Jai Bunch PCA. dd6 10:27 Unknown, Family Dr is Private Physician. dd6 10:27 Patient moved to Waiting dd6 10:28 Patient visited by Luciano Beltran, BEAR. mlb1 10:28 Patient moved to Pre RCE dd6 10:30 Triage Initiated mlb1 10:32 Patient visited by Luciano Beltran, BEAR. mlb1 10:32 The patient / caregiver is instructed regarding the plan of care and ED course. mlb1 10:32 Patient moved to Triage 2 mlb1 10:42 Hcg, Serum Quantitative Sent. ct3 10:50 Shae Lobo PA-C is PHCP. dt4 10:50 Evangelina Rico MD is Attending Physician. dt4 10:50 Patient visited by Shae Lobo PA-C. dt4 11:04 Patient moved to TR2 ct3 11:22 Patient visited by Juany Correa PCA. ct3 11:32 Patient moved to PR1 / 25 ct3 11:38 Patient visited by Juany Correa PCA. ct3 11:47 Param Candelario is Referral Physician. dt4 11:53 Accompanied by Significant Other, Patient has correct armband on for positive ttb identification. 11:53 No IV's were initiated during this patient's visit. No procedures done that require ttb assistance. Labs drawn. (by ED staff). Order Results: Lab Order: Hcg, Serum Quantitative; SPEC'M 10/12/16 10:42 Test: HCG, SERUM QUANTITATIVE; Value: [id number]; Units: MIU/ML; Status: F Test Note: ; GESTATIONAL AGE APPROXIMATE HCG RANGE (MIU/ML) 0.2-1 WEEK 5-50 1-2 WEEKS 50-500 2-3 WEEKS 100-5,000 3-4 WEEKS 500-10,000 4-5 WEEKS 1,000-50,000 5-6 WEEKS 10,000-100,000 6-8 WEEKS 15,000-200,000 2-3 MONTHS 10,000-100,000 NON FEMALES LESS THAN 3.0 Patient samples may contain human heterophilic antibodies that could react with immunoassays to give falsely elevated or depressed results. This assay has been designed to minimize interference from heterophilic antibodies. Elevated hCG levels have also been associated with trophoblastic disease and nontrophoblastic neoplasms. The possibility of having these diseases should be considered before a diagnosis of is made. This test is not intended for use as a surrogate marker for aiding in the diagnosis or monitoring the treatment of cancer patients. Siemens FanGager (MyBrandz) methodology. Outcome: 11:47 Discharge ordered by Provider. dt4 11:53 Discharge Assessment: Patient awake, alert and oriented x 3. No cognitive and/or ttb functional deficits noted. Patient verbalized understanding of disposition instructions. Patient awake and alert. patient administered narcotics - no. The following High Risk Discharge criteria are identified: None. Discharged to home ambulatory, with significant other. Condition: good Condition: stable Condition: improved. Discharge instructions given to patient, significant other, Instructed on discharge instructions, follow up and referral plans. medication usage, pelvic rest Demonstrated understanding of instructions, medications, stated understading Pt was receptive of discharge instructions/ teaching. No special radiology studies were completed. Property :Personal belongings accompany Pt. 11:55 Patient left the ED. ttb Signatures: Luciano Beltran RN RN mlb1 Jai Bunch, HYDRAULIC REPAIRER HYDRAULIC REPAIRER dd6 Juany Correa, HYDRAULIC REPAIRER HYDRAULIC REPAIRER ct3 Marcella Salas RN RN ttb Shae Lobo PA-C PARaym dt4 Corrections: (The following items were deleted from the chart) 10:31 10:28 Presenting complaint: Patient states: Here for recheck HcG mlb1 mlb1 MTDD
--- NOTE | 2016-10-14 12:57 | EDDOCDS ---
Nurse's Notes [facility] Name: Radha Kim Age: 30 yrs Sex: Female : 1985 Arrival Date: 10/12/2016 Time: 10:26 Bed PR Private MD: Unknown, Family Dr Diagnosis: state Presentation: 10/12 10:28 Presenting complaint: Patient states: Here for recheck Hcg. Adult Sepsis Screening: The mlb1 patient does not have new or worsening altered mentation. Patient's respiratory rate is less than 22. Systolic blood pressure is greater than 100. Patient has a qSOFA score of 0- Negative Sepsis Screen. Suicide/Homicide risk assessment- the patient denies having any suicidal and/or homicidal ideations and does not present with any other emotional, behavioral or mental health complaints. Transition of care: Patient is not a personal care service provider or dependent. patient was not received from another setting of care. 10:28 Acuity: GUS Level 4 mlb1 10:28 Method Of Arrival: Walkin/Carried/Asstd mlb1 10:31 Status: Patient is not a personal care service provider or dependent. mlb1 10:32 Presenting complaint:. mlb1 Triage Assessment: 10:31 General: Appears in no apparent distress, comfortable, Behavior is appropriate for age, mlb1 cooperative. Pain: Denies pain. HIV screening NA for this visit Offered previously. TICKET COUNTER: 10:32 LMP 08/19/2016, Verified, EDC 05/26/2017, Gestational age from LMP: 7 weeks 5 mlb1 days Historical: - Allergies: no known allergies; - Home Meds: 1. none - PMHx: none; - PSHx: none; - Social history: Smoking status: Patient states was never smoker of tobacco. No barriers to communication noted, The patient speaks fluent Armenian, Speaks appropriately for age. - Family history: Not pertinent. - : The pt / caregiver states he / she is not on anticoagulants. Home medication list is obtained from the patient. - Exposure Risk Screening:: None identified. Screenin:31 Screening information is obtained from the patient. Fall risk: No risks identified. mlb1 Assistance ADL's: requires no assistance with activities of daily living. Abuse/DV Screen: The patient / caregiver reports he/she is: not in a situation that causes fear, pain or injury. Nutritional screening: No deficits noted. Advance Directives: Currently, there is no health care proxy. home support is adequate. Assessment: 11:53 Adult Sepsis Screening: The patient does not have new or worsening altered mentation. ttb Patient's respiratory rate is less than 22. Systolic blood pressure is greater than 100. Patient has a qSOFA score of 0- Negative Sepsis Screen. General: Appears in no apparent distress, well nourished, well groomed, Behavior is appropriate for age, cooperative, pleasant. Pain: Denies pain. Neurological: Level of Consciousness is awake, alert. Cardiovascular: Chest pain is denied. Respiratory: No deficits noted. Airway is patent Denies cough, shortness of breath. GI: Denies nausea, vomiting. : Reports "Spotting". Derm: Skin is normal. Injury Description: No known injury. Vital Signs: 10:27 BP 116 / 61; Pulse 69; Resp 18 S; Temp 97.7(O); Pulse Ox 100% on R/A; Weight 45.36 kg dd6 (R); Height 4 ft. 11 in. (149.86 cm) (R); 11:38 BP 109 / 61; Pulse 62; Resp 18; Temp 97.9(O); Pulse Ox 100% on R/A; Pain 1/10; ct3 10:27 Body Mass Index 20.20 (45.36 kg, 149.86 cm) dd6 Vitals: 10:27 Log In Time: October 12, 2016 at 10:25. dd6 ED Course: 10:27 Patient visited by Jai Bunch PCA. dd6 10:27 Unknown, Family Dr is Private Physician. dd6 10:27 Patient moved to Waiting dd6 10:28 Patient visited by Luciano Beltran, BEAR. mlb1 10:28 Patient moved to Pre RCE dd6 10:30 Triage Initiated mlb1 10:32 Patient visited by Luciano Beltran, BEAR. mlb1 10:32 The patient / caregiver is instructed regarding the plan of care and ED course. mlb1 10:32 Patient moved to Triage 2 mlb1 10:42 Hcg, Serum Quantitative Sent. ct3 10:50 Shae Lobo PA-C is PHCP. dt4 10:50 Evangelina Rico MD is Attending Physician. dt4 10:50 Patient visited by Shae Lobo PA-C. dt4 11:04 Patient moved to TR2 ct3 11:22 Patient visited by Juany Correa PCA. ct3 11:32 Patient moved to PR1 / 25 ct3 11:38 Patient visited by Juany Correa PCA. ct3 11:47 Param Candelario is Referral Physician. dt4 11:53 Accompanied by Significant Other, Patient has correct armband on for positive ttb identification. 11:53 No IV's were initiated during this patient's visit. No procedures done that require ttb assistance. Labs drawn. (by ED staff). 11:57 [facility] [place] was scanned into [employer]er[employer] and attached to record. mm15 14:43 T-Sheet-- Draft Copy was scanned into [employer] and attached to record. gb Order Results: Lab Order: Hcg, Serum Quantitative; SPEC'M 10/12/16 10:42 Test: HCG, SERUM QUANTITATIVE; Value: 30153; Units: MIU/ML; Status: F Test Note: ; GESTATIONAL AGE APPROXIMATE HCG RANGE (MIU/ML) 0.2-1 WEEK 5-50 1-2 WEEKS 50-500 2-3 WEEKS 100-5,000 3-4 WEEKS 500-10,000 4-5 WEEKS 1,000-50,000 5-6 WEEKS 10,000-100,000 6-8 WEEKS 15,000-200,000 2-3 MONTHS 10,000-100,000 NON FEMALES LESS THAN 3.0 Patient samples may contain human heterophilic antibodies that could react with immunoassays to give falsely elevated or depressed results. This assay has been designed to minimize interference from heterophilic antibodies. Elevated hCG levels have also been associated with trophoblastic disease and nontrophoblastic neoplasms. The possibility of having these diseases should be considered before a diagnosis of is made. This test is not intended for use as a surrogate marker for aiding in the diagnosis or monitoring the treatment of cancer patients. Siemens [employer] methodology. Outcome: 11:47 Discharge ordered by Provider. dt4 11:53 Discharge Assessment: Patient awake, alert and oriented x 3. No cognitive and/or ttb functional deficits noted. Patient verbalized understanding of disposition instructions. Patient awake and alert. patient administered narcotics - no. The following High Risk Discharge criteria are identified: None. Discharged to home ambulatory, with significant other. Condition: good Condition: stable Condition: improved. Discharge instructions given to patient, significant other, Instructed on discharge instructions, follow up and referral plans. medication usage, pelvic rest Demonstrated understanding of instructions, medications, stated understading Pt was receptive of discharge instructions/ teaching. No special radiology studies were completed. Property :Personal belongings accompany Pt. 11:55 Patient left the ED. ttb Signatures: Breanna Carmona, Reg Reg gb Luciano Beltran RN RN mlb1 Jai Bunch, QUILL MACHINE OPERATOR QUILL MACHINE OPERATOR dd6 Juany Correa, QUILL MACHINE OPERATOR QUILL MACHINE OPERATOR ct3 Marcella Salas RN RN ttb Steff Benitez mm15 Shae Lobo PA-C PARamy dt4 Corrections: (The following items were deleted from the chart) 10:31 10:28 Presenting complaint: Patient states: Here for recheck HcG mlb1 mlb1 Chart Complete MTDD
--- NOTE | 2016-10-14 12:57 | EDDOCDS ---
Physician Documentation [facility] Name: Radha Kim Age: 30 yrs Sex: Female : 1985 Arrival Date: 10/12/2016 Time: 10:26 Bed PR Private MD: Unknown, Family Disposition: 10/12/16 11:47 Discharged to Home/Self Care. Impression: state. - Condition is Stable. - Discharge Instructions: First Trimester of . - Medication Reconciliation, Local Pharmacy Hours form. - Follow up: Emergency Department; When: As needed; Reason: Worsening of conditions. Follow up: Param Candelario; When: Call to arrange an appointment; Reason: Wound/Symptom Recheck, Further diagnostic work-up, Recheck today's complaints, Continuance of care, To establish care. - Problem is new. - Symptoms are unchanged. - Notes: YOUR HCG ON 10/10/16 WAS 49,549. TODAY, IT WAS 56,368 WHICH IS A NORMAL INCREASE FOR A HEALTHY . PLEASE CALL THE [facility] AUDIT[facility] OFFICE TODAY TO SCHEDULE AN APPOINTMENT TO BE SEEN. LET THEM KNOW YOU WERE SEEN IN THE ER AND THE SYMPTOMS YOU WERE HAVING. ANY WORSENING SYMPTOMS, PLEASE RETURN TO THE ER. Historical: - Allergies: no known allergies; - Home Meds: 1. none - PMHx: none; - PSHx: none; - Social history: Smoking status: Patient states was never smoker of tobacco. No barriers to communication noted, The patient speaks fluent Trinidadian, Speaks appropriately for age. - Family history: Not pertinent. - : The pt / caregiver states he / she is not on anticoagulants. Home medication list is obtained from the patient. - Exposure Risk Screening:: None identified. PUBLISHING EDITOR: 10/12 10:32 LMP 08/19/2016, Verified, EDC 05/26/2017, Gestational age from LMP: 7 weeks 5 mlb1 days Vital Signs: 10:27 BP 116 / 61; Pulse 69; Resp 18 S; Temp 97.7(O); Pulse Ox 100% on R/A; Weight 45.36 kg / dd6 100 lbs (R); Height 4 ft. 11 in. (149.86 cm) (R); 11:38 BP 109 / 61; Pulse 62; Resp 18; Temp 97.9(O); Pulse Ox 100% on R/A; Pain 10; ct3 10:27 Body Mass Index 20.20 (45.36 kg, 149.86 cm) dd6 MDM: 10:39 Hcg, Serum Quantitative Ordered. EDMS 11:12 Financial registration complete. lg 11:57 [facility] Payment Agreement was scanned into [employer] and attached to record. mm15 14:43 T-Sheet-- Draft Copy was scanned into [employer] and attached to record. gb Signatures: Dispatcher [employer] EDMS Breanna Carmona, Reg Reg gb Linda Robert, Reg Reg lg Luciano Beltran RN RN mlb1 Marcella Salas RN RN malinib Steff Benitez mm15 Shae Lobo PA-C PA-C dt4 The chart was reviewed and I authenticate all verbal orders and agree with the evaluation and treatment provided.Attachments: 11:57 [facility] Payment Agreement mm15 14:43 T-Sheet-- Draft Copy gb Chart Complete MTDD
--- NOTE | 2016-10-14 12:57 | EDDOCDS ---
Physician Documentation [facility] Name: Radha Kim Age: 30 yrs Sex: Female : 1985 Arrival Date: 10/12/2016 Time: 10:26 Bed PR Private MD: Unknown, Family Disposition: 10/12/16 11:47 Discharged to Home/Self Care. Impression: state. - Condition is Stable. - Discharge Instructions: First Trimester of . - Medication Reconciliation, Local Pharmacy Hours form. - Follow up: Emergency Department; When: As needed; Reason: Worsening of conditions. Follow up: Param Candelario; When: Call to arrange an appointment; Reason: Wound/Symptom Recheck, Further diagnostic work-up, Recheck today's complaints, Continuance of care, To establish care. - Problem is new. - Symptoms are unchanged. - Notes: YOUR HCG ON 10/10/16 WAS 49,549. TODAY, IT WAS 56,368 WHICH IS A NORMAL INCREASE FOR A HEALTHY . PLEASE CALL THE [facility] OFFICE TODAY TO SCHEDULE AN APPOINTMENT TO BE SEEN. LET THEM KNOW YOU WERE SEEN IN THE ER AND THE SYMPTOMS YOU WERE HAVING. ANY WORSENING SYMPTOMS, PLEASE RETURN TO THE ER. Historical: - Allergies: no known allergies; - Home Meds: 1. none - PMHx: none; - PSHx: none; - Social history: Smoking status: Patient states was never smoker of tobacco. No barriers to communication noted, The patient speaks fluent Slovenian, Speaks appropriately for age. - Family history: Not pertinent. - : The pt / caregiver states he / she is not on anticoagulants. Home medication list is obtained from the patient. - Exposure Risk Screening:: None identified. 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 11 in. (149.86 cm) (R); 11:38 BP 109 / 61; Pulse 62; Resp 18; Temp 97.9(O); Pulse Ox 100% on R/A; Pain 10; ct3 10:27 Body Mass Index 20.20 (45.36 kg, 149.86 cm) dd6 MDM: 10:39 Hcg, Serum Quantitative Ordered. EDMS 11:12 Financial registration complete. lg 11:57 [facility] Payment Agreement was scanned into [employer] and attached to record. mm15 14:43 T-Sheet-- Draft Copy was scanned into [employer] and attached to record. gb Signatures: Dispatcher [employer] EDMS Breanna Carmona, Reg Reg gb Linda Robert, Reg Reg lg Luciano Beltran RN RN mlb1 Marcella Salas RN RN malinib Steff Benitez mm15 Shae Lobo PA-C PA-C dt4 The chart was reviewed and I authenticate all verbal orders and agree with the evaluation and treatment provided.Attachments: 11:57 [facility] Payment Agreement mm15 14:43 T-Sheet-- Draft Copy gb Chart Complete MTDD
== END 2016-10-12 11:55 | disposition home or self-care (01) ==
LOC: M ED 10:26
DX: Z32.01 Encounter for pregnancy test, result positive (principal)

== ENCOUNTER → 2016-10-24 | Outpatient (CLI) | payer MEDICAID | LOC: M SMT 09:26 | PROVIDERS: ATTEND Advanced Practice Midwife | DX: O20.0 Threatened abortion (principal) ==

== ENCOUNTER → 2016-11-03 | Outpatient (CLI) | payer MEDICAID, OTHER | LOC: M LAB 13:42 | PROVIDERS: ATTEND Advanced Practice Midwife | DX: O02.1 Missed abortion (principal) ==

== ENCOUNTER → 2016-11-05 | Outpatient (CLI) | payer MEDICAID | LOC: M LAB 14:36 | PROVIDERS: ATTEND Advanced Practice Midwife | DX: O02.1 Missed abortion (principal) ==

== ENCOUNTER → 2016-11-17 | Outpatient (CLI) | payer OTHER | LOC: M LAB 10:47 | PROVIDERS: ATTEND Advanced Practice Midwife | DX: O02.1 Missed abortion (principal) ==

== ENCOUNTER → 2016-11-23 | Outpatient (CLI) | payer OTHER | LOC: M LAB 13:05 | PROVIDERS: ATTEND Advanced Practice Midwife | DX: O03.89 Complete or unspecified spontaneous abortion with other complications (principal) ==

== ENCOUNTER → 2016-12-02 | Outpatient (CLI) | payer OTHER | LOC: M LAB 11:03 | PROVIDERS: ATTEND Advanced Practice Midwife | DX: O03.89 Complete or unspecified spontaneous abortion with other complications (principal) ==

== ENCOUNTER → 2017-04-13 | Outpatient (CLI) | payer OTHER ==
--- NOTE | 2017-04-13 13:31 | REP ---
Clinical: Anatomical evaluation. Comparison: None Findings: Examination demonstrates a single live intrauterine in variable presentation. motion is identified by technologist. Placenta is noted posteriorly and grade zero without evidence for placenta previa or abruption. Amniotic fluid volume is normal. Cervix measures 3.7 cm in length and appears closed. No evidence for nuchal cord. Gestational age by LMP 18 weeks 5 days with SHANTELLE 09/09/2017 . Gestational age by current measurements 18 weeks 2 days with SHANTELLE 09/12/2017 . FHR equals 133 beats per minute. BPD 4.0 cm 18 weeks 0 days HC 14.9 cm 18 weeks 0 days AC 13.1 cm 18 weeks 4 days FL 2.7 cm 18 weeks 1 day HL 2.7 cm 18 weeks 3 days HC/AC ratio 1.14 Estimated weight 237 grams ( 35th percentile). Anatomical assessment demonstrates normal structures including cranium, choroid plexus, cavum, cerebellum/posterior fossa, facial features, lungs, four-chamber heart/ventricular outflow tracts, diaphragm, stomach, cord insertion/three-vessel cord, kidneys/bladder, and extremities. Incomplete evaluation of the spine due to positioning. Impression: Single live intrauterine in variable presentation. Appropriate interval growth is appreciated. With the exception of this spine, the anatomical assessment is complete and normal. Signed by Major Mcdonough MD 04/13/2017 01:23 P
== END ==
LOC: M RAD 12:14
PROVIDERS: ATTEND Advanced Practice Midwife
DX: Z34.82 Encounter for supervision of other normal pregnancy, second trimester (principal); Z3A.18 18 weeks gestation of pregnancy

== ENCOUNTER → 2017-04-26 | Outpatient (CLI) | payer OTHER ==
--- NOTE | 2017-04-26 16:25 | REP ---
FOLLOW-UP OB ULTRASOUND: 04/26/2017: Comparison: Anatomy screening exam 04/13/2017. Clinical history: Anatomy screen incomplete on exam 2 weeks ago for spine due to position. Findings: Study again shows a single intrauterine gestation in vertex position. A posterior grade 1 placenta without previa or abruption. Cervix is 4.8 cm long and closed. Amniotic fluid volume is visually normal. Based on initial ultrasound she is 20 weeks 1 day with EDC 09/12/2017. biometry: BPD 4.6 cm 20 weeks HC 17.5 cm 20 weeks AC 14.9 cm 20 weeks 1 day FL 3.2 cm 20 weeks 1 day HL 3 cm 20 weeks. This gives average ultrasound age of 20 weeks, EDC 09/13/2017. This is normal interval growth. Estimated weight 334 grams or 11 ounces at 31st percentile for due date based on LMP (20 weeks 4 days, 09/09/2017). This is normal interval growth. heart activity noted at 140 and regular. Cranial vault, lateral ventricles, choroid plexus, thalami, cavum septum pellucidum, cerebellum, cisterna magna were unremarkable. Nose and lips view is normal but the profile view is not well seen. It was visualized well on a previous study. lungs, four chamber heart view, ventricular outflow tracts, diaphragm, left sided stomach, three vessel cord with cord insertion, kidneys and bladder, upper and lower extremities and the entire spine and sagittal and transverse planes is visible and unremarkable. Impression: 1. Single intrauterine gestation in vertex position with closed 4.8 cm long cervix, visually normal amniotic fluid volume and a posterior grade 1 placenta without previa or abruption. 2. Anatomy screen should now be considered complete, the previously obscured spine is now fully evaluated and grossly unremarkable. 3. Normal interval growth. See details above. Signed by Marco Khan MD 06/07/2017 04:59 P
== END ==
LOC: M RAD 14:08
PROVIDERS: ATTEND Advanced Practice Midwife
DX: Z34.82 Encounter for supervision of other normal pregnancy, second trimester (principal); Z3A.20 20 weeks gestation of pregnancy

== ENCOUNTER → 2017-06-21 | Outpatient (CLI) | payer OTHER ==
[2017-06-21 12:44] LABS: MEAN CORPUSCULAR HEMOGLOBIN 31.2 pg (27.0-33.0); RED CELL DISTRIBUTION WIDTH 12.1 % (11.5-14.5)
== END ==
LOC: M LAB 10:54
PROVIDERS: ATTEND Advanced Practice Midwife
DX: Z34.82 Encounter for supervision of other normal pregnancy, second trimester (principal)

== ENCOUNTER → 2017-08-22 | Outpatient (CLI) | payer OTHER ==
[~2017-08-22] MED LIST: CALC1CHW PO; PRENTAB9 PO; [UNRECOGNIZED DRUG - CODE] PO
--- NOTE | 2017-08-22 11:51 | REP ---
OB ULTRASOUND: Real-time sonographic evaluation of the gravid uterus is performed. There is a single living intrauterine gestation. Estimated gestational age is 37 weeks 3 days, EDC 09/09/2017. Today's measurements indicate suboptimal growth. BPD 83 mm = 33 weeks 2 days, less than 5th percentile HC 291 mm = 32 weeks 1 day, less than 5th percentile AC 299 mm = 33 weeks 6 days, less than 5th percentile Femur length 64 mm = 33 weeks 1 day, less than 5th percentile HC/AC ratio 0.97 within normal range. Estimated weight 2190 grams, less than 3rd percentile. Cervix is closed and measures 3.3 cm in length. heart rate 139 beats per minute. Amniotic fluid appears low. ANA is 5.9 below normal range of 7.4 to 24.2. Biophysical profile score 8 out of 8. S/D ratio 2.46 is within normal range of 1.6-2.6. RI 0.59 is within normal range of 0.59-0.75. S/D ratio of middle cerebral artery 4.83 and resistive index 0.79. The four chamber heart, stomach, kidneys, bladder, and spine are visualized and are grossly unremarkable. position vertex. Placenta posterior and grade 0 with no previa or abruption. Signed by Edilson Daniel MD 08/22/2017 01:30 P
== END ==
LOC: M RAD 08:20
PROVIDERS: ATTEND Advanced Practice Midwife
DX: Z34.80 Encounter for supervision of other normal pregnancy, unspecified trimester (principal)

== ENCOUNTER 2017-08-23 12:25 | Inpatient (IN) | payer OTHER ==
[2017-08-23] VITALS (8 sets, daily range): BP systolic 115–139; BP diastolic 59–78
[~2017-08-23] VITALS: Ht 149.9 cm; Wt 55.0 kg
[2017-08-23] MEDS ORDERED: LACTATED RINGER'S 1000 ML IV STA (13:02)
[2017-08-23] MEDS ORDERED: PRENTAB9 PO (13:04)
[2017-08-23] MEDS ORDERED: [UNRECOGNIZED DRUG - CODE] PO (13:04)
[2017-08-23] MEDS ORDERED: CALC1CHW PO (13:04)
[2017-08-23] MEDS ORDERED: miSOPROStol 50 MCG 1/2 TAB (S0191) SL ONE ×2 (13:30→18:00)
[2017-08-23 13:51] LABS: MEAN CORPUSCULAR HEMOGLOBIN 30.5 pg (27.0-33.0); MEAN CORPUSCULAR HGB CONC 35.4 g/dl (32.0-36.5); MEAN CORPUSCULAR VOLUME 86.1 fl (80.0-96.0); PLATELET COUNT, AUTOMATED 305 10^3/uL (150-450); RED CELL DISTRIBUTION WIDTH 12.4 % (11.5-14.5); WHITE BLOOD COUNT 13.7 10^3/uL (4.0-10.0)
[2017-08-23] MEDS: LR 1,000 ML IV SCH ×2 (13:52→21:54)
[2017-08-23] MEDS ORDERED: OXYTOCIN DRIP 30 UNITS in APPROPRIATE DILUENT 1 EA IV SCH (21:45)
[2017-08-23] MEDS ORDERED: FENTANYL 2MCG/ML ROPIVACAINE 0.2% IN 0.9% NACL 200ML IVBAG As Ordered ONE (23:55)
[2017-08-24] VITALS (35 sets, daily range): BP systolic 97–138; BP diastolic 53–88
[2017-08-24] MEDS ORDERED: EPIDURAL/PCA KEYS XX PRN (00:18)
[2017-08-24] MEDS ORDERED: ePHEDrine SULFATE 25 MG/5 ML(5MG/ML) SYRINGE IV PRN (00:18)
[2017-08-24] MEDS ORDERED: REFRIGERATOR IV KEYS XX PRN (00:18)
[2017-08-24] MEDS ORDERED: ONDANSETRON 4MG/2ML VIAL (J2405) IV PRN ×2 (00:18→05:15)
[2017-08-24] MEDS ORDERED: NALOXONE INJ 0.4 MG/1 ML VIAL (J2310) IV PRN (00:18)
[2017-08-24] MEDS ORDERED: EPIDURAL COMMENT XX SCH (00:18)
[2017-08-24] MEDS ORDERED: LACTATED RINGER'S 1000 ML IV PRN (00:18)
[2017-08-24] MEDS ORDERED: FENTANYL/ROPIVACAINE/NACL BAG 200 ML EPIDURAL SCH (00:18)
[2017-08-24] MEDS ORDERED: diphenhydrAMINE INJ 50MG/ML VIAL (J1200) IV PRN (00:18)
[2017-08-24] MEDS ORDERED: OXYTOCIN DRIP 30 UNITS in APPROPRIATE DILUENT 1 EA IV SCH (05:12)
[2017-08-24] MEDS ORDERED: LR 1,000 ML IV SCH (05:12)
[2017-08-24] MEDS ORDERED: DOCUSATE SODIUM 100 MG CAP PO PRN (05:15)
[2017-08-24] MEDS ORDERED: PROMETHAZINE 25 MG TAB PO PRN (05:15)
[2017-08-24] MEDS ORDERED: RHOGAM 300 MCG (1500 IU) INJ (J2790) IM SCH (05:15)
[2017-08-24] MEDS ORDERED: ACETAMINOPHEN 650 MG SUPP PR PRN (05:15)
[2017-08-24] MEDS ORDERED: ACETAMINOPHEN 500 MG TAB PO PRN (05:15)
[2017-08-24] MEDS ORDERED: METHYLERGONOVINE MALEATE 0.2 MG TAB PO PRN (05:15)
[2017-08-24] MEDS ORDERED: MEASLES,MUMPS,RUBELLA VACCINE INJ (MMR-II) (90707) SC SCH (05:15)
[2017-08-24] MEDS: PRENATAL VITAMINS CHEWABLE TABLET PO SCH (08:19)
[2017-08-24] MEDS ORDERED: PRENATAL VITAMINS CHEWABLE TABLET PO SCH (09:00)
[2017-08-24] MEDS ORDERED: IBUPROFEN 800 MG TAB PO PRN (21:15)
[2017-08-25 06:00] VITALS: BP 130/77
[2017-08-25] MEDS: PRENATAL VITAMINS CHEWABLE TABLET PO SCH (08:08)
[2017-08-25 18:01] VITALS: BP 125/82
[2017-08-26 05:42] VITALS: BP 124/73
[2017-08-26] MEDS: PRENATAL VITAMINS CHEWABLE TABLET PO SCH (07:39)
[2017-08-26] MEDS ORDERED: IBUP-1114 PO (10:08)
[2017-08-26] MEDS ORDERED: COLA100C5 PO (10:08)
[2017-08-26] MEDS ORDERED: ACET50TA PO (10:08)
== END 2017-08-26 12:40 | disposition home or self-care (01) | DRG 775 ==
LOC: M LDI 12:25 → M OBS 08-24 08:30
PROVIDERS: ADMIT Obstetrics & Gynecology; ATTEND Obstetrics & Gynecology
PROC: 3E0DXGC Introduction of Other Therapeutic Substance into Mouth and Pharynx, External Approach (ICD-10-PCS; 2017-08-23)
PROC: 10E0XZZ Delivery of Products of Conception, External Approach (ICD-10-PCS; principal; 2017-08-24)
PROC: 10907ZC Drainage of Amniotic Fluid, Therapeutic from Products of Conception, Via Natural or Artificial Opening (ICD-10-PCS; 2017-08-24)
DX: O36.5930 Maternal care for other known or suspected poor fetal growth, third trimester, not applicable or unspecified (principal); O41.03X0 Oligohydramnios, third trimester, not applicable or unspecified; Z37.0 Single live birth; Z3A.37 37 weeks gestation of pregnancy

== ENCOUNTER → 2018-02-28 | Outpatient (CLI) | payer OTHER ==
[2018-02-28 14:41] LABS: BASO % 0.4 % (0.0-1.0); EOS # 0.1 10^3/uL (0.0-0.50); EOS % 1.2 % (0.0-3.0); HEMATOCRIT 39.6 % (36.0-47.0); IMMATURE GRANULOCYTE % 0.4 % (0-3.0); LYMPH # 2.1 10^3/uL (1.5-4.5); LYMPH % 18.5 % (24.0-44.0); MEAN CORPUSCULAR HEMOGLOBIN 30.7 pg (27.0-33.0); MEAN CORPUSCULAR HGB CONC 35.4 g/dl (32.0-36.5); MEAN CORPUSCULAR VOLUME 86.8 fl (80.0-96.0); MONO # 0.6 10^3/uL (0.0-0.8); MONO % 5.2 % (0.0-5.0); NEUTROPHILS # 8.4 10^3/uL (1.8-7.7); NEUTROPHILS % 74.3 % (36.0-66.0); PLATELET COUNT, AUTOMATED 312 10^3/uL (150-450); RED BLOOD COUNT 4.56 10^6/uL (4.00-5.40); RED CELL DISTRIBUTION WIDTH 11.9 % (11.5-14.5); WHITE BLOOD COUNT 11.2 10^3/uL (4.0-10.0)
[2018-02-28 16:04] LABS: RUBELLA IgG QUALITATIVE IMMUNE (IMMUNE)
[2018-02-28 16:06] LABS: HBsAg Prenatal NEGATIVE (NEGATIVE)
[2018-02-28 16:18] LABS: CHLAMYDIA DNA AMPLIFICATION NEGATIVE (NEGATIVE); GC DNA AMPLIFICATION NEGATIVE (NEGATIVE)
[2018-02-28 16:34] LABS: HIV 1&2 SCREEN CENTAUR NEGATIVE (NEGATIVE)
[2018-02-28 16:34] LABS: HEPATITIS C VIRUS ABY INDEX < 0.0 INDEX (<0.8)
== END ==
LOC: M LAB 13:57
DX: Z36.89 Encounter for other specified antenatal screening (principal); Z3A.01 Less than 8 weeks gestation of pregnancy
CPT/HCPCS: 86762